=== PATIENT | female | born 1945 | race Hispanic/Latino ===

== ENCOUNTER 2024-04-01 18:20 | Emergency (ER) | payer MEDICARE ==
[~2024-04-01] VITALS: Ht 152.4 cm; Wt 63.5 kg
[~2024-04-01 18:20] MED LIST: ACET-66 PO
[2024-04-01] MEDS ORDERED: DIATR MEGLU/DIATRIZOATE SODIUM 30 ML BOTTLE ONE (19:11)
[2024-04-01 19:28] VITALS: BP 144/42; PULSE 64; RESP 16; O2SAT 94
== END 2024-04-01 20:24 | disposition home or self-care (01) ==
LOC: EDH 18:20
DX: T85.628A Displacement of other specified internal prosthetic devices, implants and grafts, initial encounter (principal); F41.9 Anxiety disorder, unspecified; E11.9 Type 2 diabetes mellitus without complications; K21.9 Gastro-esophageal reflux disease without esophagitis; Z86.73 Personal history of transient ischemic attack (TIA), and cerebral infarction without residual deficits; Y82.9 Unspecified medical devices associated with adverse incidents; Y92.89 Other specified places as the place of occurrence of the external cause
CPT/HCPCS: 99284; 43762; 74018; Q9963

== ENCOUNTER 2024-07-03 20:10 | Emergency (ER) | payer MEDICARE ==
[2024-07-03 20:39] VITALS: BP 92/56; PULSE 45; RESP 16; TEMP 97.8; O2SAT 100
== END 2024-07-03 21:19 ==
LOC: EDH 20:10
DX: K94.23 Gastrostomy malfunction (principal); F41.9 Anxiety disorder, unspecified; E11.9 Type 2 diabetes mellitus without complications; K21.9 Gastro-esophageal reflux disease without esophagitis; G20.A1 Parkinson's disease without dyskinesia, without mention of fluctuations; Z86.73 Personal history of transient ischemic attack (TIA), and cerebral infarction without residual deficits
CPT/HCPCS: 43762